=== PATIENT | male | born 1965 | race Caucasian/White ===

== ENCOUNTER 2024-02-20 07:02 | Day surgery (SDC) | payer BC ==
[~2024-02-20 07:02] MED LIST: Sodium Chloride 0.9% 10 ML Syringe FLUSH PRN
[2024-02-20] MEDS: Lactated Ringers 1,000 ML IV SCH (07:08)
[2024-02-20] MEDS ORDERED: Propofol 200 MG/20 ML SDV ONE (07:14)
[2024-02-20] MEDS ORDERED: Midazolam 1 MG/ML 2 ML SDV ONE (07:14)
[2024-02-20 07:43] LABS: GLUCOSE,POC 124 mg/dL (70-99)
[2024-02-20 16:19] VITALS: BP 112/61; PULSE 73
== END 2024-02-20 09:25 ==
LOC: LL.SDS 07:02
PROVIDERS: ATTEND Surgery
DX: Z12.11 Encounter for screening for malignant neoplasm of colon (principal); D12.3 Benign neoplasm of transverse colon; E11.40 Type 2 diabetes mellitus with diabetic neuropathy, unspecified; E78.2 Mixed hyperlipidemia; E66.9 Obesity, unspecified; G47.33 Obstructive sleep apnea (adult) (pediatric); Z79.4 Long term (current) use of insulin; Z79.899 Other long term (current) drug therapy
CPT/HCPCS: 00811; 82947; J2250; J2704; J7120